=== PATIENT | female | born 1995 | race Two or more races ===

== ENCOUNTER 2021-03-29 01:43 | Emergency (ER) | payer SELFPAY ==
[~2021-03-29] VITALS: Ht 175.3 cm; Wt 77.1 kg
[2021-03-29] MEDS ORDERED: ALPRAZolam 0.25 MG TAB PO ONE (03:30)
[2021-03-29] MEDS ORDERED: cefTRIAXone SOD 1,000 MG VL IM ONE (03:30)
[2021-03-29] MEDS ORDERED: AZITHROMYCIN 250 MG TAB PO ONE (03:30)
[2021-03-29 04:32] LABS: Urine Bacteria FEW /hpf (None Seen); Urine Blood TRACE /uL (Negative); Urine Mucus FEW (None Seen); Urine Specific Gravity 1.018 (1.001-1.035); Urine WBC 42 /hpf (0 - 5)
[2021-03-29 05:13] VITALS: BP 112/69
== END 2021-03-29 05:17 | disposition home or self-care (01) ==
LOC: ER 01:43
DX: T74.21XA Adult sexual abuse, confirmed, initial encounter (principal); N90.7 Vulvar cyst; N39.0 Urinary tract infection, site not specified; F17.210 Nicotine dependence, cigarettes, uncomplicated; F12.10 Cannabis abuse, uncomplicated; Y04.8XXA Assault by other bodily force, initial encounter; Y93.89 Activity, other specified; Y92.89 Other specified places as the place of occurrence of the external cause; Y99.8 Other external cause status
CPT/HCPCS: 81001; 81025; 96372; 99284; J0696; J7030